=== PATIENT | female | born 1990 | race Caucasian/White ===

== ENCOUNTER 2021-11-07 22:09 | Emergency (ER) | payer BC, MEDICAID ==
[2021-11-07] MEDS ORDERED: Proparacaine 0.5% Ophth Soln 15 ML Bottle EYELF PRN (22:22)
[2021-11-07] MEDS ORDERED: Erythromycin Base 0.5% Ophth Oint 3.5 GM Tube EYEBOTH ONE (22:48)
[2021-11-07] MEDS: Take Home: Gentamicin 0.3% Ophth Oint 3.5 GM, 1 Tube Pack EYEBOTH ONE ×2 (22:50→23:01)
== END 2021-11-07 23:00 | disposition home or self-care (01) ==
LOC: VM.ED 22:09
DX: T15.91XA Foreign body on external eye, part unspecified, right eye, initial encounter (principal); Z88.0 Allergy status to penicillin
CPT/HCPCS: 99283; A9270-GY